=== PATIENT | male | born 1950 | race Caucasian/White ===

== ENCOUNTER 2019-08-11 11:31 | Emergency (ER) | payer MEDICAID, SELFPAY ==
--- NOTE | ~2019-08-11 | XR_ITS ---
EXAMINATION: XR wrist RT min 3V INDICATION: Right wrist pain TECHNIQUE: Four views of the right wrist are obtained. COMPARISON: None available FINDINGS: There is no fracture, dislocation, or subluxation. Mild osteoarthritis is noted at the matilda caphe joint. There is soft tissue swelling of the medial wrist. IMPRESSION: 1. Wrist soft tissue swelling without acute osseous abnormality. Reviewed, dictated and finalized at location A.
[2019-08-11 11:52] VITALS: BP 125/69; PULSE 58; RESP 16; TEMP 37.8; O2SAT 99
--- NOTE | 2019-08-11 11:56 | ED.UPPEXIN ---
HPI - Extremity Injury (Upper) General Chief Complaint: Extremity Injury, Upper Stated Complaint: possible broken right arm Time Seen by Provider: 08/11/19 11:56 Source: patient Mode of arrival: ambulatory Limitations: no limitations History of Present Illness HPI narrative: Carlos Kinney is a 68 yo male comes to express care with pain in right arm after catching arm between door and wall yesterday; states he is on morphine for chronic back and neck pain. Right forearm wrist is mildly swollen and states is painful morphine is not helping. He is currently being treated for high blood pressure chronic back pain, BPH. Patient states he is new to the area will need to find PCP Related Data Home Medications Medication Instructions Recorded Confirmed Flomax 08/11/19 Ventolin HFA 08/11/19 amlodipine 10 mg PO DAILY 08/11/19 08/11/19 aspirin 08/11/19 isosorbide mononitrate 08/11/19 lisinopril 08/11/19 morphine 08/11/19 pregabalin 08/11/19 Allergies Allergy/AdvReac Type Severity Reaction Status Date / Time No Known Allergies Allergy Verified 08/11/19 11:54 Review of Systems Review of Systems: Narrative: CONSTITUTIONAL: Denies fever, chills, sweats. EYES: Denies visual changes, redness, discharge. ENT: Denies rhinorrhea, congestion, sore throat, otalgia. CARDIOVASCULAR: Denies chest pain, palpitations, edema. RESPIRATORY: Denies dyspnea, wheezing, cough GASTROINTESTINAL: Denies abdominal pain, nausea, vomiting, diarrhea. GENITOURINARY: Denies dysuria, hematuria, abnormal discharge SKIN: Denies rash or itching. NEUROLOGIC: Denies numbness, or focal weakness. PSYCHIATRIC: Denies anxiety or depression. Extremity-right arm pain, swelling PMFSH Family History Family History Other Diabetes mellitus Social History Social History (Updated 08/11/19 @ 12:07 by Jesusita Norton CNP) Smoking packs per day: 1.0 Smoking cigarettes per day: 20.0 Smoking status: Current every day smoker Alcohol intake: current Comments At time of signature, I agree with nursing past medical, surgical, social and family history. There is no relevant family history pertinent to the presenting complaint. Exam Narrative: Exam Narrative: GENERAL: This is a well-nourished, well-developed patient, in mild distress. HEAD: normocephalic, atraumatic. EYES: Sclera clear/white. Vision is grossly intact. EARS: External ears normal, . Hearing grossly intact. NOSE: External nose normal without nasal discharge, nares without redness, no rhinorrhea. THROAT: Mucous membranes moist, NECK: Neck supple, CARDIOVASCULAR: Regular rate and rhythm without murmurs, gallops, or rubs. RESPIRATORY: Clear to auscultation. Breath sounds equal bilaterally. No wheezes, rales, or rhonchi. GASTROINTESTINAL: Abdomen soft, non-tender, SKIN: warm, intact with no suspicious lesions or rash, good texture and turgor. NEURO: awake, alert, and oriented to person, place and time. There were no obvious focal neurologic abnormalities. Steady gait EXTREMITIES: Right lower arm around wrist appears somewhat swollen slow to do finger opposition but is able to do; plus radial pulse BACK: without deformity Course Course Emergency Course: X-ray right arm-forearm x-ray is negative for fracture. Is\has osteoarthritis Darwin wrap applied, may use Naprosyn up to 5 days, ice for pain Vital Signs Vital signs: Vital Signs Temperature 100.0 F H 08/11/19 11:52 Pulse Rate 58 L 08/11/19 11:52 Respiratory Rate 16 08/11/19 11:52 Blood Pressure 125/69 08/11/19 11:52 Pulse Oximetry 99 08/11/19 11:52 Temperature 100.0 F H 08/11/19 11:52 Pulse Rate 58 L 08/11/19 11:52 Respiratory Rate 16 08/11/19 11:52 Blood Pressure 125/69 08/11/19 11:52 Pulse Oximetry 99 08/11/19 11:52 MDM - Extremity Injury (Upper) Differential Diagnosis Differential diagnosis: Likely fracture of wrist, fractur
== END 2019-08-11 12:48 | disposition home or self-care (01) ==
PROVIDERS: Emergency Provider Nurse Practitioner
DX: S60.211A Contusion of right wrist, initial encounter (principal); F17.210 Nicotine dependence, cigarettes, uncomplicated; W23.0XXA Caught, crushed, jammed, or pinched between moving objects, initial encounter
CPT/HCPCS: 73110; 99213; A4565; G0463

== ENCOUNTER 2019-11-30 08:08 | Outpatient (CLI) | payer MEDICAID, SELFPAY ==
--- NOTE | ~2019-11-30 | US_ITS ---
EXAMINATION: US venous doppler LE RT DATE: 11/30/2019 09:01 INDICATION: Right lower limb pain TECHNIQUE: Grayscale ultrasound images without and with compression and Doppler ultrasound images of the right lower extremity veins were obtained. COMPARISON: None. FINDINGS: The visualized portions of right common femoral vein, profunda (deep) femoral vein, femoral vein, pop liteal vein, peroneal trunk, posterior tibial veins, peroneal veins, gastrocnemius vein and greater s aphenous vein outflow are patent. IMPRESSION: 1. No deep venous thrombosis in the right lower limb. Reviewed, dictated and finalized at location A.
== END 2019-11-30 08:09 | disposition home or self-care (01) ==
PROVIDERS: Visit Provider Physician Assistant
DX: I82.409 Acute embolism and thrombosis of unspecified deep veins of unspecified lower extremity (principal)
CPT/HCPCS: 93971

== ENCOUNTER 2020-06-16 08:03 | Emergency (ER) | payer OTHER, SELFPAY ==
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
[2020-06-16 08:06] VITALS: BP 139/64; PULSE 57; RESP 20; TEMP 36.3; O2SAT 100
--- NOTE | 2020-06-16 09:06 | PC.NURSE ---
patient walking out of ED at this time, states I will be back in 5 minutes, the x-ray can wait or I can walk down there after I go outside. Patient told to please wait in the room for x-ray to come get him. Patient still walking out of ED without difficulty and in no distress.
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
== END 2020-06-16 10:12 | disposition home or self-care (01) ==
PROVIDERS: Emergency Provider Family Medicine
DX: S16.1XXA Strain of muscle, fascia and tendon at neck level, initial encounter (principal); J44.9 Chronic obstructive pulmonary disease, unspecified; F17.210 Nicotine dependence, cigarettes, uncomplicated; M50.31 Other cervical disc degeneration, high cervical region; M51.36 Other intervertebral disc degeneration, lumbar region; M85.88 Other specified disorders of bone density and structure, other site; V03.19XA Pedestrian with other conveyance injured in collision with car, pick-up truck or van in traffic accident, initial encounter
CPT/HCPCS: 72050; 99283

== ENCOUNTER 2020-06-25 08:31 | Outpatient (CLI) | payer MEDICAID, SELFPAY ==
--- NOTE | ~2020-06-25 | XR_ITS ---
EXAMINATION: XR chest 2V DATE: 06/25/2020 09:01 INDICATION: Chest pain, shortness of breath TECHNIQUE: Frontal and lateral views of the chest are obtained COMPARISON: None available FINDINGS: The lungs are free of acute opacities. There is no pleural effusion or pneumothorax. The ca rdiomediastinal silhouette is normal. There is moderate thoracic spondylosis. IMPRESSION: 1. No acute cardiopulmonary abnormality. Reviewed, dictated and finalized at location B.
== END 2020-06-25 08:32 | disposition home or self-care (01) ==
PROVIDERS: PCP Physician Assistant; Visit Provider Physician Assistant
DX: R07.89 Other chest pain (principal); M47.814 Spondylosis without myelopathy or radiculopathy, thoracic region
CPT/HCPCS: 71046

== ENCOUNTER 2020-07-27 06:59 | Outpatient (CLI) | payer MEDICAID, SELFPAY ==
--- NOTE | ~2020-07-27 | MR_ITS ---
EXAMINATION: MR cervical spine wo con DATE: 07/27/2020 07:57 INDICATION: Neck pain. TECHNIQUE: Magnetic resonance imaging (MRI) of the cervical spine was performed without intravenous c ontrast. Sequences included sagittal T2-weighted FSE, sagittal STIR FSE, sagittal T1-weighted FSE, ax ial MERGE, and axial T2-weighted FSE. COMPARISON: Cervical spine radiographs 06/16/2020 FINDINGS: There is kyphosis of lower cervical spine. There is 5 degrees levocurvature of cervical spi ne. There is mild chronic height loss of C5 and C6 vertebral bodies. There is moderately decreased di sc height at C3-C4, mildly decreased disc height at C4-C5, moderately decreased disc height at C5-C6 and C6-C7, and severely decreased disc height at C7-T1. The spinal cord signal intensity is normal. T he following disc levels are specifically discussed: C2-C3: There is a central protrusion. There is mild bilateral uncovertebral joint osteoarthritis. The re is severe right and mild left facet joint osteoarthritis. There is moderate right and mild left ne ural foraminal stenosis. There is mild central canal stenosis. C3-C4: The disc is bulging. There is severe bilateral uncovertebral joint osteoarthritis. There is se nancy bilateral facet joint osteoarthritis. There is moderate right and severe left neural foraminal s tenosis. There is moderate central canal stenosis with ventral and dorsal indentation of the spinal c ord. C4-C5: The disc is bulging. There is severe right and moderate left uncovertebral joint osteoarthriti s. There is severe right and moderate left facet joint osteoarthritis. There is moderate right and mi ld left neural foraminal stenosis. There is moderate central canal stenosis with ventral and dorsal i ndentation of the spinal cord. C5-C6: The disc is bulging. There is severe right and moderate left uncovertebral joint osteoarthriti s. There is severe right and moderate left facet joint osteoarthritis. There is moderate right and mi ld left neural foraminal stenosis. There is mild central canal stenosis. C6-C7: The disc is bulging. There is moderate bilateral uncovertebral joint osteoarthritis. There is severe bilateral facet joint osteoarthritis. There is mild bilateral neural foraminal stenosis. There is mild central canal stenosis. C7-T1: The disc is bulging. There is severe right and moderate left uncovertebral joint osteoarthriti s. There is severe bilateral facet joint osteoarthritis. There is moderate right and mild left neural foraminal stenosis. There is no central canal stenosis. IMPRESSION: 1. Severe cervical spondylosis. Reviewed, dictated and finalized at location B.
== END 2020-07-27 07:00 | disposition home or self-care (01) ==
PROVIDERS: PCP Physician Assistant; Visit Provider Physician Assistant
DX: M47.892 Other spondylosis, cervical region (principal)
CPT/HCPCS: 72141

== ENCOUNTER 2020-09-24 07:30 | Outpatient (RCR) | payer OTHER, MEDICAID, SELFPAY ==
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
== END 2020-09-27 16:50 | disposition home or self-care (01) ==
LOC: ANHPT 07:30
PROVIDERS: PCP Physician Assistant; Visit Provider Physician Assistant
DX: M54.2 Cervicalgia (principal)
CPT/HCPCS: 97110; 97140; 97162

== ENCOUNTER 2020-11-07 08:02 | Outpatient (CLI) | payer MEDICAID, SELFPAY ==
--- NOTE | ~2020-11-07 | XR_ITS ---
EXAMINATION: XR facial bones min 3V EXAM DATE: 11/07/2020 08:25 INDICATION: Patient noticed left zygomatic arches 12 and compared to right. TECHNIQUE: Frontal, George's, lateral projections of the facial bones. There is no prior study for c omparison. FINDINGS: There are no acute facial fractures or dislocations identified. There is no subcutaneous g as. The soft tissue is unremarkable. There are no radiopaque foreign bodies. Cervical spondylosis . Sinuses appear well aerated. IMPRESSION: 1. Unremarkable facial x-ray exam. Reviewed, dictated and finalized at location A.
== END 2020-11-07 08:03 | disposition home or self-care (01) ==
LOC: ANHIMG 08:06
PROVIDERS: PCP Physician Assistant; Visit Provider Physician Assistant
DX: M89.9 Disorder of bone, unspecified (principal)
CPT/HCPCS: 70150

== ENCOUNTER 2021-02-19 07:35 | Outpatient (CLI) | payer MEDICAID, SELFPAY ==
--- NOTE | ~2021-02-19 | XR_ITS ---
EXAMINATION: XR chest 2V DATE: 02/19/2021 07:52 INDICATION: Acute upper respiratory infection, cough TECHNIQUE: Frontal and lateral views of the chest are obtained COMPARISON: 06/25/2020 FINDINGS: The lungs are free of acute opacities. There is no pleural effusion or pneumothorax. The ca rdiomediastinal silhouette is normal. There is moderate thoracic spondylosis. IMPRESSION: 1. No acute cardiopulmonary abnormality. Reviewed, dictated and finalized at location A. [employer]
== END 2021-02-19 07:36 | disposition home or self-care (01) ==
LOC: ANHIMG 07:40
PROVIDERS: PCP Physician Assistant; Visit Provider Physician Assistant
DX: J06.9 Acute upper respiratory infection, unspecified (principal)
CPT/HCPCS: 71046

== ENCOUNTER 2021-06-20 08:00 | Outpatient (RCR) | payer OTHER, MEDICAID, SELFPAY ==
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
--- NOTE | 2021-06-04 09:35 | PCPTNOTE ---
Patient called to cancel appointment due to rain this date.
--- NOTE | 2021-06-20 08:39 | PTOPEVAL ---
PHYSICAL THERAPY PROGRESS REPORT AND DISCHARGE NOTE. Thank you for referring Carlos Kinney to [facility] [place].? The patient is to be discharged from skilled physical therapy services at this time. Please review, sign, date and return this plan of care CHELSEA. I agree with and certify that the following plan of care is medically necessary. Referring Physician Date Attending Provider: Linda Holloway, PA Evaluation Information Diagnosis Cervicalgia Onset Chronic Subjective Information Pt states doing his exercises Query Text:As Reported By Patient/ is a much, he states when he Family does them his pain eases but never goes away. He report he has recently started getting a sharp pain in the middle of his shoulder blades. He states his pain lingers around a 5/ 10, certain motions will cause it to spike up and then his pain will subside slowly. Pain Assessment Self Report Pain Assessment Left Lower Neck Reported Pain Level 7 Greatest Pain Intensity 9 Cervical and Lumbar ROM Cervical ROM Pain Cervical Flexion (0-60) 32 active Cervical Extension (0-70) 20 active Cervical Lateral Flexion Right (0-50) 35 active Cervical Lateral Flexion Right (0-50) 60 passive Cervical Lateral Flexion Left (0-50) 10 active Cervical Lateral Flexion Left (0-50) 30 passive Cervical Rotation Right (0-90) 32 active Cervical Rotation Right (0-90) 45 passive Cervical Rotation Left (0-90) 44 active Cervical Rotation Left (0-90) 60 passive Cervical ROM 50% of Normal Cervical ROM Comments Pt holds head in 10 deg lateral tilt to the R Upper Extremity Range of Motion General Upper Extremity Range of Motion WFL/Left,WFL/Right Upper Extremity Muscle Strength Testing Gross Upper Extremity Strength Comments B UE grossly 4-/5 Posture Head/C-Spine Posture Rotated Right,Side Bent Right Thoracic Spine Posture Neutral Shoulder Posture (L) Rounded,(R) Rounded Scapula Posture (L) Winged Palpation Assessment Palpation Palpation along lower c-spine and B upper trap Manual Therapy Treatment Comments PROM greater than AROM when Query Text:Include Technique and assessed in supine, still Result of Technique limited from normal and painful at end ROM PT Clinical Summary Talat presents to therapy today for his progress report following 6 therapy visits to
== END 2021-06-21 10:56 | disposition home or self-care (01) ==
LOC: ANHPT 08:00
PROVIDERS: PCP Physician Assistant; Visit Provider Physician Assistant
DX: M54.2 Cervicalgia (principal)
CPT/HCPCS: 97110; 97140; 97161

== ENCOUNTER 2021-08-10 07:52 | Outpatient (CLI) | payer MEDICAID, SELFPAY ==
--- NOTE | ~2021-08-10 | CT_ITS ---
EXAMINATION: CT lung screening DATE: 08/10/2021 08:13 INDICATION: Personal history of tobacco dependence TECHNIQUE: Computed tomography (CT) of the chest was performed without intravenous contrast. The dose -length product was 85.12 mGy-cm. Automated exposure control and iterative reconstruction technique w ere employed. COMPARISON: None FINDINGS: No significant pleural or pericardial effusion. There is atherosclerosis of the aorta and c oronary arteries. Heart size normal. The upper abdomen is unremarkable. There are borderline sized me diastinal lymph nodes, likely reactive. No axillary lymphadenopathy. 6 mm subsolid nodule right apex, coronal image 53. There is a superior endplate compression fracture of L1, age-indeterminate.. There is emphysema. No endobronchial lesions. There are multiple additional 2-3 mm nodules in both lungs p redominantly in the upper lobes. There are are calcified granulomas in both lungs. No pneumothorax. T here is right lower lobe atelectasis/scarring. No endobronchial lesions. IMPRESSION: 1. Lung-RADS category 3: Probably benign. Further evaluation is recommended with noncontrast low-dose chest CT in 6 months. 2: Superior endplate compression fracture of L1, age indeterminate. Reviewed, dictated and finalized at location A. IMPRESSION: 1. Lung-RADS category 3: Probably benign. Further evaluation is recommended wit h noncontrast low-dose chest CT in 6 months. 2: Superior endplate compression fracture of L1, age indeterminate.
== END 2021-08-10 07:53 | disposition home or self-care (01) ==
PROVIDERS: PCP Physician Assistant; Visit Provider Physician Assistant
DX: Z12.2 Encounter for screening for malignant neoplasm of respiratory organs (principal); F17.200 Nicotine dependence, unspecified, uncomplicated; S32.019A Unspecified fracture of first lumbar vertebra, initial encounter for closed fracture
CPT/HCPCS: 71271

== ENCOUNTER 2021-09-12 07:38 | Outpatient (CLI) | payer MEDICAID, SELFPAY ==
--- NOTE | 2021-09-12 13:13 | WPDPFTINT ---
PFT Procedure Performed PFT Procedure Performed Spirometry with Pre/Post Bronchodilator Plethysmography (Lung Vol) Diffusing Cap (DLCO) Flow Vol Loop PFT Interpretation This is a pulmonary function test with pre and post-bronchodilator spirometry, plethysmography and diffusing capacity. The test was performed and results interpreted in accordance with the 2019 and 2005 ATS/ERS Task Force guidelines respectively using the Global Lung Function Initiative-2012 reference equations. Patient demonstrated good effort and cooperation. Reproducibility criteria were met. The quality of the pre bronchodilator spirometry maneuver was Grade A and post bronchodilator spirometry maneuver was Grade A. Findings: Spirometry: The expiratory flow tracing is notched in 3 of 3 pre bronchodilator maneuvers and 2 of 4 post bronchodilator maneuvers. In addition, there is decreased maximal expiratory airflow at low lung volumes with concave expiratory flow tracing. The contour the inspiratory flow tracing is flattened. The pre bronchodilator FVC is 4.32 L, 100% predicted. The pre bronchodilator FEV1 is 2.71 L, 84% predicted. The pre bronchodilator FEV1: FVC ratio 63%. The post bronchodilator FVC is 4.34 L, representing 1% increase. The post bronchodilator FEV1 is 3.04 L, representing a 12% increase. New the post bronchodilator FEV1: FVC ratio 70%. Plethysmography: Total lung capacity is 8.06 L, 112% predicted. The functional residual capacity is 4.28 L, 102 11% predicted. The residual volume is 3.72 L, 147% predicted. Diffusing capacity: The diffusing capacity unadjusted for hemoglobin and carboxyhemoglobin is 25.6, 98% predicted. The diffusing capacity adjusted for alveolar volume is 4.69, 123% predicted. 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 Flattening of the inspiratory flow tracing is seen with variable extrathoracic obstruction. This has been described with vocal cord paralysis, structural or functional vocal fold abnormalities, extrathoracic tracheomalacia, polychondritis, mobile tumors, and laryngomalacia. Clinical correlation is recommended. There is a mild obstructive abnormality with a normal FEV1 and with significant improvement after inhaling a single dose of albuterol. The increase in residual volume is consistent with air trapping from an obstructive abnormality. The diffusing capacity is normal. There are no prior studies for comparison
== END 2021-09-12 07:39 | disposition home or self-care (01) ==
LOC: ANHPFT 07:40
PROVIDERS: PCP Physician Assistant; Visit Provider Physician Assistant
DX: J43.9 Emphysema, unspecified (principal); R94.2 Abnormal results of pulmonary function studies
CPT/HCPCS: 94060; 94726; 94729

== ENCOUNTER 2022-01-29 08:28 | Emergency (ER) | payer MEDICAID, SELFPAY ==
--- NOTE | ~2022-01-29 | CT_ITS ---
EXAMINATION: CT brain wo con DATE: 01/29/2022 09:23 INDICATION: Fall with head injury TECHNIQUE: Computed tomography (CT) of the head was performed without intravenous contrast. Sagittal and coronal reconstructions were performed. The mA was adjusted according to patient size. Iterative reconstruction technique was employed. The dose-length product was 605.33 mGy-cm. COMPARISON: None FINDINGS: No fracture. No acute intracranial hemorrhage, acute infarction or abnormal extra axial fluid collect ion. There is mild scattered white matter hypoattenuation consistent with chronic small vessel ischem ic disease. Symmetric prominence of the sulci consistent with mild age-appropriate diffuse cerebral v olume loss. Ventricles are normal and symmetric. No mass/mass effect. The orbits, paranasal sinuses a nd mastoid air cells are normal. IMPRESSION: 1. No fracture or acute intracranial process. 2. Age-related changes including mild diffuse volume loss and mild scattered white matter hypoattenua tion consistent with chronic small vessel ischemic disease. Reviewed, dictated and finalized at location B. RVISING LIBRARIAN IMPRESSION: 1. No fracture or acute intracranial process. 2. Age-related changes including mild diffuse volume loss and mild scattered wh ite matter hypoattenuation consistent with chronic small vessel ischemic diseas e.
--- NOTE | ~2022-01-29 | CT_ITS ---
EXAMINATION: CT thoracic spine wo con DATE: 01/29/2022 09:52 INDICATION: Midline tenderness upper thoracic spine. Fall. TECHNIQUE: Computed tomography (CT) of the thoracic spine was performed without intravenous contrast. Automated exposure control and iterative reconstruction technique were employed. The dose-length pro duct was 621.93 mGy-cm. COMPARISON: Chest CT 08/10/2021 FINDINGS: There is mild emphysema. A calcified right lung nodule is consistent with old granulomatous disease. There are old healed right rib fractures. There is 6 degrees levocurvature of upper thoraci c spine, 5 degrees dextrocurvature of mid thoracic spine, and 17 degrees levoscoliosis of thoracolumb ar spine. There is a chronic compression fracture of L1 with 2/5 loss of height. There is severe cerv ical spondylosis. There is mildly decreased disc height at T5-T6 and T7-T8. There are endplate osteop hytes at many levels. At T11-T12, there is a central protrusion with mild central canal stenosis. The re is multilevel mild facet joint osteoarthritis in thoracic spine. On the right, there is mild neura l foraminal stenosis at T1-T2 and moderate neural foraminal stenosis at T2-T3. On the left, there is moderate neural foraminal stenosis at T2-T3. IMPRESSION: 1. No acute fracture. 2. Mild thoracic spondylosis. 3. Scoliosis. Reviewed, dictated and finalized at location A. FILLETER
--- NOTE | ~2022-01-29 | CT_ITS ---
EXAMINATION: CT cervical spine wo con DATE: 01/29/2022 09:23 INDICATION: Neck pain. Head injury. TECHNIQUE: Computed tomography (CT) of the cervical spine was performed without intravenous contrast. Automated exposure control and iterative reconstruction technique were employed. The dose-length pro duct was 308.66 mGy-cm. COMPARISON: Cervical spine MRI 07/27/2020 FINDINGS: There is mild emphysema. There is 5 degrees levocurvature of cervical spine. There is kypho sis of cervical spine. Vertebral body heights are normal. There is severely decreased disc height at C3-C4, moderately decreased disc height at C4-C5, and severely decreased disc height from C5-C6 throu gh C7-T1 with endplate remodeling. The following disc levels are specifically discussed: C2-C3: There is moderate right and mild left uncovertebral joint osteoarthritis. There is severe righ t and mild left facet joint osteoarthritis. There is moderate right neural foraminal stenosis. There is no central canal stenosis. C3-C4: There is severe bilateral uncovertebral joint osteoarthritis. There is severe bilateral facet joint osteoarthritis. There is mild right and moderate left neural foraminal stenosis. There is mild central canal stenosis. C4-C5: There is moderate right and mild left uncovertebral joint osteoarthritis. There is severe righ t and mild left facet joint osteoarthritis. There is mild bilateral neural foraminal stenosis. There is no central canal stenosis. C5-C6: There is severe right and moderate left uncovertebral joint osteoarthritis. There is severe ri ght and moderate left facet joint osteoarthritis. There is moderate right and mild left neural forami nal stenosis. There is mild central canal stenosis. C6-C7: There is moderate right and severe left uncovertebral joint osteoarthritis. There is severe bi lateral facet joint osteoarthritis. There is mild left neural foraminal stenosis. There is mild centr al canal stenosis. C7-T1: There is severe bilateral uncovertebral joint osteoarthritis. There is severe bilateral facet joint osteoarthritis. There is mild bilateral neural foraminal stenosis. There is mild central canal stenosis. IMPRESSION: 1. No fracture. 2. Severe cervical spondylosis. Reviewed, dictated and finalized at location A. MATIC FOLDER SEAMER
[2022-01-29 08:32] VITALS: BP 154/90; PULSE 118; RESP 20; TEMP 36.7; O2SAT 100
--- NOTE | 2022-01-29 08:40 | PC.NURSE ---
PT REFUSING TO WEAR A C COLLAR, GET IN TO STRETCHER, AND CHANGE IN TO GOWN.
--- NOTE | 2022-01-29 09:30 | PC.NURSE ---
RN witnessed pt. ambulate out of ed w/ steady gait.
--- NOTE | 2022-01-29 09:32 | PC.NURSE ---
pt. returned to H2
--- NOTE | 2022-01-29 09:36 | ED.GENADULT ---
HPI - General Adult General Chief complaint: Neck Pain/Injury Stated complaint: Hit head, neck pain Time Seen by Provider: 01/29/22 09:02 Source: patient Mode of arrival: ambulatory Limitations: no limitations History of Present Illness HPI narrative: Patient is a 71-year-old male who presents the ED with report of a fall with head injury. Patient reports he was sitting at the poker machine on Thursday night when the chair broke, causing him to fall backwards. He hit his head on the ground. He did not lose consciousness. He has had persistent pain in his posterior neck, radiating down into his upper back, between his shoulder blades. He has not taken anything for the pain. He notes a previous neck injury with surgery. He denies any dizziness, vision changes, nausea, vomiting, lower back pain. Related Data Home Medications Medication Instructions Recorded Confirmed albuterol sulfate 4 mg tablet 4 mg PO ONCE 03/19/21 03/19/21 aspirin 81 mg tablet,delayed 81 mg PO DAILY 03/19/21 03/19/21 release (Adult Aspirin Regimen) buspirone 10 mg tablet 10 mg PO TID 03/19/21 03/19/21 docusate sodium 50 mg capsule 50 mg PO BID 03/19/21 03/19/21 isosorbide dinitrate 10 mg tablet 10 mg PO ONCE 03/19/21 03/19/21 lisinopril 40 mg tablet 40 mg PO DAILY 03/19/21 03/19/21 tamsulosin 0.4 mg capsule 0.4 mg PO DAILY 03/19/21 03/19/21 venlafaxine 37.5 mg 37.5 mg PO DAILY 03/19/21 03/19/21 capsule,extended release 24 hr Allergies Allergy/AdvReac Type Severity Reaction Status Date / Time Iodinated Contrast Media Allergy Anaphylactic Verified 03/19/21 09:55 Shock Review of Systems Review of Systems: CONSTITUTIONAL: Denies fever, chills, or sweats. EYES: Denies visual changes. CARDIOVASCULAR: Denies chest pain. RESPIRATORY: Denies dyspnea. GASTROINTESTINAL: Denies abdominal pain, nausea, vomiting, or diarrhea. MUSCULOSKELETAL: Reports neck pain, upper back pain. NEUROLOGIC: Reports HI. Denies LOC, dizziness, headache, numbness, or weakness. All systems reviewed & are unremarkable except as noted in HPI and below PMFSH Past Medical History Medical History BPH (benign prostatic hyperplasia) Chronic back pain COPD (chronic obstructive pulmonary disease) Depression HTN (hypertension) Surgical History Surgical History History of cervical spinal surgery Family History Family History Other Diabetes mellitus Social History Social History Smoking packs per day: 1.0 Smoking cigarettes per day: 20.0 Smoking status: Current some day smoker Alcohol intake: current Gender identity (if verbalized by the patient): Male Exam Narrative: GENERAL: Well appearing, well-nourished, non-toxic, in no acute distress. HEAD: Normocephalic, atraumatic. NECK: Supple. No adenopathy, no masses. Mild lower midline cervical spinal tenderness. RESPIRATORY: Airway patent, respirations nonlabored. Clear to auscultation bilaterally, no rales, rhonchi, wheezing. CARDIOVASCULAR: Regular rate and rhythm without murmurs, rubs, or gallops. Peripheral pulses 2+ and equal bilaterally. MUSCULOSKELETAL: Moves all extremities. Strength/ROM intact without gross deformities. Mild upper thoracic midline spinal tenderness. No palpable deformities, step-offs. Strength 5/5 in upper and lower extremities bilaterally. SKIN: Warm, dry, normal color. No rashes. NEURO: A&O X3. Speech clear. Cranial nerves II-XII grossly intact. Steady gait. No ataxic movements. No focal deficits. PSYCHIATRIC: Appropriate mood and affect. Normal interaction. Course Vital Signs Vital signs: Vital Signs Temperature 98.0 F 01/29/22 08:32 Pulse Rate 118 H 01/29/22 08:32 Respiratory Rate 20 01/29/22 08:32 Blood Pressure 154/90 H 01/29/22 0
[2022-01-29 10:30] VITALS: BP 156/87; PULSE 78; RESP 18; O2SAT 97
== END 2022-01-29 10:31 | disposition home or self-care (01) ==
PROVIDERS: Emergency Provider Emergency Medicine; PCP Physician Assistant
DX: S09.90XA Unspecified injury of head, initial encounter (principal); S16.1XXA Strain of muscle, fascia and tendon at neck level, initial encounter; F17.210 Nicotine dependence, cigarettes, uncomplicated; J44.9 Chronic obstructive pulmonary disease, unspecified; I10 Essential (primary) hypertension; F32.9 Major depressive disorder, single episode, unspecified; W07.XXXA Fall from chair, initial encounter
CPT/HCPCS: 70450; 72125; 72128; 99284

== ENCOUNTER 2022-05-21 06:58 | Outpatient (CLI) | payer MEDICAID, SELFPAY ==
--- NOTE | ~2022-05-21 | CT_ITS ---
EXAMINATION: CT diagnostic chest wo con DATE: 05/21/2022 07:19 INDICATION: Lung nodule follow-up TECHNIQUE: Computed tomography (CT) of the chest was performed without intravenous contrast. Automate d exposure control and iterative reconstruction technique were employed. Exam dose: 87.79 mGy-cm tot al exam DLP. COMPARISON: 08/10/2021 CT lung screening FINDINGS: There is thoracic and abdominal aortic, great vessel and coronary calcified atherosclerosis . No thoracic aortic aneurysm. No hilar or mediastinal mass lesion or lymphadenopathy is detected. He art size is within normal range. No pericardial or pleural effusion. Minimal bilateral apical and basilar scarring. No pulmonary infiltrate or consolidation or suspicious pulmonary mass lesion. There is old pulmonary granulomatous disease. No suspicious osteolytic or osteoblastic lesions. Prominent degenerative disc disease at C6-7 and C7-T1. Moderate stable compression fracture deformity of L1. IMPRESSION: Lung RADS category 1: Negative Reviewed, dictated and finalized at Location A. Reviewed, dictated and finalized at location B. TENING MACHINE OPERATOR
== END 2022-05-21 06:59 | disposition home or self-care (01) ==
PROVIDERS: PCP Physician Assistant; Visit Provider Physician Assistant
DX: R91.1 Solitary pulmonary nodule (principal)
CPT/HCPCS: 71250

== ENCOUNTER 2023-05-28 05:03 | Emergency (ER) | payer MEDICAID, SELFPAY ==
[2023-05-28] VITALS (14 sets, daily range): BP systolic 132–161; BP diastolic 81–111; PULSE 90–134; RESP 10–19; TEMP 36.5; O2SAT 93–100
--- NOTE | ~2023-05-28 | CT_ITS ---
Non-contrast Head CT History: Status post fall COMPARISON: 01/29/2022 Technique: Axial non-contrast imaging of the brain was performed. Dose reduction technique was used on this scan by utilizing automated exposure control and iterative reconstruction technique. The dose -length product (DLP) was 681.00 mGy-cm. Findings: There is no evidence of intracranial hemorrhage, mass lesion, or acute infarct. Brain par enchyma appears normal. The ventricles and subarachnoid spaces are normal in size. The calvarium ap pears normal. The visualized paranasal sinuses and mastoid air cells are clear. Impression: No significant abnormality seen. Reviewed, dictated and finalized at location . Impression: No significant abnormality seen.
--- NOTE | ~2023-05-28 | XR_ITS ---
Portable chest x-ray Comparison: 02/19/2021 Clinical History: Chest pain Findings: Lungs are clear, without focal consolidation or pleural effusion. Cardiomediastinal silho uette is stable. Bones and soft tissues are unremarkable. Impression: Clear lungs. Reviewed, dictated and finalized at location . Impression: Clear lungs.
--- NOTE | 2023-05-28 05:08 | ECG_ITS ---
Measurements Intervals [place] Rate: 126 P: NE: 0 QRS: 34 QRSD: 97 T: 53 QT: 310 QTc: 449 Interpretive Statements ATRIAL FIBRILLATION WITH RAPID VENTRICULAR RESPONSE DELAYED PRECORDIAL R/S TRANSITION BORDERLINE ST-T WAVE ABNORMALITY- INFERIOR LEADS BASELINE ARTIFACT- V3 ABNORMAL ECG NO PREVIOUS ECG AVAILABLE FOR COMPARISON Electronically Signed On 05-28-2023 6:26:13 CDT by Vignesh Garcia D.O.
[2023-05-28 05:19] LABS: Basophils Percent Auto 0.5 % (0.2-1.2); Eosinophils Absolute Auto 0.1 K/mm3 (0-0.3); Eosinophils Percent Auto 0.8 % (0-4.4); Hematocrit 40.9 % (42.0-52.0); Hemoglobin 13.7 g/dL (14.0-18.0); Immature Granulocyte Absolute 0.02 K/mm3 (0.00-0.031); Immature Granulocyte Percent A 0.3 % (0-0.5); Lymphocytes Absolute Auto 1.01 K/mm3 (0.9-3.2); Lymphocytes Percent Auto 16.9 % (18.3-44.2); Mean Corpuscular HGB Conc 33.5 g/dl (32-36); Mean Corpuscular Hemoglobin 31.9 pg (26-34); Mean Corpuscular Volume 95.1 fl (80-100); Mean Platelet Volume 9.6 fl (7.4-10.4); Monocytes Absolute Auto 0.6 K/mm3 (0.1-0.6); Monocytes Percent Auto 9.2 % (2.6-8.5); Neutrophils Absolute Auto 4.3 K/mm3 (1.3-6.7); Neutrophils Percent Auto 72.3 % (45.5-73.1); Platelet Count Result 210 k/mm3 (150-375); Red Cell Distribution Width 12.1 % (11.5-14.5)
--- NOTE | 2023-05-28 05:28 | PC.NURSE ---
Patient states that while he quit drinking a long time ago he also states For the past couple of months I have really been putting it away .
[2023-05-28 05:30] LABS: Prothrombin Time 13.8 Seconds (11.1-14.7)
[2023-05-28 05:32] LABS: Alanine Aminotransferase 41 U/L (6-50); Albumin Level 4.1 g/dL (3.5-5.1); Alkaline Phosphatase 89 U/L (38-126); Anion Gap 2 mmol/L (8-16); Aspartate Amino Transferase 65 U/L (17-59); Bilirubin,Total 1.4 mg/dL (0.2-1.3); Blood Urea Nitrogen 8 mg/dL (9-20); Calcium 8.9 mg/dL (8.4-10.2); Carbon Dioxide 32 mmol/L (22-30); Chloride 100 mmol/L (98-107); Estimated CRCL calculation 115 ml/min; Estimated Glomerular Filt Rate > 60; Glucose 117 mg/dL (65-110); Lipase 129 U/L (23-300); Potassium 3.9 mmol/L (3.4-5.0); Sodium 134 mmol/L (137-145)
[2023-05-28] MEDS: SODIUM CHLORIDE 0.9% IV 2,000 ML 999 ML IV CONT (05:35)
[2023-05-28] MEDS: ASPIRIN 81 MG CHEWABLE TABLET 324 MG PO (05:37)
[2023-05-28] MEDS: dilTIAZem HCl INJ 25 MG/5 ML VIAL 10 MG IV PUSH ×2 (05:38→05:50)
[2023-05-28 05:44] LABS: Troponin I < 0.012 ng/mL (0.000-0.034)
[2023-05-28 06:18] LABS: Magnesium 1.7 mg/dL (1.6-2.3); Phosphorus 3.4 mg/dL (2.5-4.5)
--- NOTE | 2023-05-28 06:20 | ED.GENADULT ---
HPI - General Adult General Chief complaint: Arrhythmia/Palpitations Stated complaint: dizzy, weak Time Seen by Provider: 05/28/23 05:07 History of Present Illness HPI narrative: this is a 72-year-old male presenting ED chief complaint feeling weak/dizzy. Patient says that over the last 2 months he has began drinking about a pint today. He had a fall 2 days ago where he struck his head. Denies loss of consciousness or use of blood thinners. Not seek medical care at that time. He came in this morning because he started to feel shaky and ill. Patient believes he may be going through withdrawal. Patient has history of atrial fibrillation but has refused to be placed on anticoagulation due to side effects. Related Data Home Medications Medication Instructions Recorded Confirmed albuterol sulfate 4 mg tablet 4 mg PO ONCE 03/19/21 03/19/21 aspirin 81 mg tablet,delayed 81 mg PO DAILY 03/19/21 03/19/21 release (Adult Aspirin Regimen) buspirone 10 mg tablet 10 mg PO TID 03/19/21 03/19/21 docusate sodium 50 mg capsule 50 mg PO BID 03/19/21 03/19/21 isosorbide dinitrate 10 mg tablet 10 mg PO ONCE 03/19/21 03/19/21 lisinopril 40 mg tablet 40 mg PO DAILY 03/19/21 03/19/21 tamsulosin 0.4 mg capsule 0.4 mg PO DAILY 03/19/21 03/19/21 venlafaxine 37.5 mg 37.5 mg PO DAILY 03/19/21 03/19/21 capsule,extended release 24 hr Allergies Allergy/AdvReac Type Severity Reaction Status Date / Time Iodinated Contrast Media Allergy Anaphylactic Verified 03/19/21 09:55 Shock [facility] Past Medical History Medical History BPH (benign prostatic hyperplasia) Chronic back pain COPD (chronic obstructive pulmonary disease) Depression HTN (hypertension) Surgical History Surgical History History of cervical spinal surgery Family History Family History Other Diabetes mellitus Social History Social History Smoking packs per day: 1.0 Smoking cigarettes per day: 20.0 Smoking status: Current some day smoker Alcohol intake: current Gender identity (if verbalized by the patient): Male Exam Narrative: APPEARANCE: Patient has a mild tremor, Head: atraumatic. EYES: EOMI, NOSE: Atraumatic NECK: Trachea midline RESPIRATORY: No increased rate of breathing clear to auscultation CARDIOVASCULAR: irregular and tachycardic ABDOMINAL: Non-distended MUSCULOSKELETAl: No obvious deformities NEURO: Alert. Cranial nerves 2-12 grossly intact. Sensation light touch, motor function cerebellar function intact for 4 extremities. Gait exam was normal. SKIN:: Warm, dry. Normal color PSYCHIATRIC: Normal affect Course Vital Signs Vital signs: Vital Signs Temperature 97.7 F 05/28/23 05:01 Pulse Rate 134 H 05/28/23 05:01 Respiratory Rate 17 05/28/23 05:01 Blood Pressure 161/111 H 05/28/23 05:01 Pulse Oximetry 100 05/28/23 05:01 Oxygen Delivery Room Air 05/28/23 05:01 Temperature 97.7 F 05/28/23 05:01 Pulse Rate 98 05/28/23 06:10 Respiratory Rate 16 05/28/23 06:10 Blood Pressure 146/100 H 05/28/23 06:10 Pulse Oximetry 100 05/28/23 06:10 Oxygen Delivery Room Air 05/28/23 05:16 Medical Decision Making [facility] Narrative Medical decision making narrative: -Course: 72-year-old male coming into the ED due to not feeling well. I found to be in AFib - RVR which rate improved with to 2 pushes of diltiazem. patient is not on anticoagulation has no desire to be put on anticoagulation due to the side effects. Additionally the patient appears to have mild withdrawal symptoms. Given IV fluids and Ativan. I recommended admission to the hospital given his AFib with RVR and withdrawal symptoms and the patient refused. Patient states that he does not do well in the
[2023-05-28] MEDS: LORazepam INJ (*CRX) 2 MG/ML VIAL IV PUSH (06:23)
--- NOTE | 2023-05-28 06:28 | PC.NURSE ---
Per EDP Dr. Rasmussen patient does not want to be admitted. Do not give the Paula mitchell.
--- NOTE | 2023-05-28 06:29 | PC.NURSE ---
Patient states he fell on his head two days ago when he was walking around his house. Patient denies taking a blood thinner or LOC. Patient appears with a 5x2 laceration to the top of his head (frontal).
[2023-05-28 06:36] LABS: Influenza A QL RT-PCR Negative (Negative); Influenza B QL RT-PCR Negative (Negative); RSV RNA, RT-PCR Negative (Negative); SARS-CoV-2 RNA PCR Negative (Negative)
[2023-05-28 06:42] LABS: Thyroid Stimulating Hormone Reflex 0.908 uIU/mL (0.465-4.68)
[2023-05-28] MEDS: chlordiazePOXIDE (*CRX) 25 MG CAPSULE PO (06:47)
[2023-05-28] MEDS: TETANUS,DIPHTHERIA,AC PERTUSSIS ADULT (0.5 ML) BOOSTRIX IM (06:47)
== END 2023-05-28 07:37 | disposition left against medical advice (07) ==
PROVIDERS: Emergency Provider Emergency Medicine; PCP Physician Assistant
DX: I48.91 Unspecified atrial fibrillation (principal); F10.10 Alcohol abuse, uncomplicated; Z20.822 Contact with and (suspected) exposure to COVID-19; Z23 Encounter for immunization; N40.0 Benign prostatic hyperplasia without lower urinary tract symptoms; J44.9 Chronic obstructive pulmonary disease, unspecified; I10 Essential (primary) hypertension; F17.210 Nicotine dependence, cigarettes, uncomplicated; Z79.82 Long term (current) use of aspirin; Y90.9 Presence of alcohol in blood, level not specified; R94.31 Abnormal electrocardiogram [ECG] [EKG]
CPT/HCPCS: 36415; 70450; 71045; 80053; 83690; 83735; 84100; 84443; 84484; 85025; 85610; 85730; 87637; 90471; 90715; 93005; 96361; 96374; 96375; 99284; A9270; J2060; J7030

== ENCOUNTER 2023-07-11 20:37 | Emergency (ER) | payer MEDICAID, SELFPAY ==
[2023-07-11 20:44] VITALS: BP 157/90; PULSE 87; RESP 20; TEMP 36.2; O2SAT 100
--- NOTE | 2023-07-11 20:44 | ECG_ITS ---
SEE SCANNED COPY FOR CONFIRMED REPORT MTDD
--- NOTE | 2023-07-11 22:39 | ED.GENADULT ---
HPI - General Adult General Chief complaint: Recheck/Abnormal Lab/Rx Stated complaint: high blood pressure Time Seen by Provider: 07/11/23 22:40 Source: patient and EMS Mode of arrival: EMS History of Present Illness HPI narrative: PATIENT LIVES ALONE, CAME TO THE ED BY AMBULANCE BECAUSE OF ELEVATED BLOOD PRESSURE. PATIENT IS SUPPOSED TO BE ON AMLODIPINE 5 MG ONCE A DAY AND LISINOPRIL 40 MG ONCE A DAY. PATIENT BEEN NOT TAKING HIS AMLODIPINE FOR QUITE A BIT OF TIME BECAUSE HIS BLOOD PRESSURE USED TO BE OKAY. PATIENT HAD SOME ALCOHOL THE DAY BEFORE YESTERDAY SUBSEQUENTLY NOTICED THAT HIS BLOOD PRESSURE WENT UP TO 100. HE DENIES ANY FEVER, CHILLS, NAUSEA, VOMITING, CHEST PAIN OR BACK PAIN OR HEADACHE. HISTORY OF STROKE WITH LEFT HEMIPLEGIA. HISTORY OF ANXIETY AND STRESS, PATIENT USUALLY TAKE HIS MEDICATION AT 2:00 A.M. BECAUSE HE DOES NOT SLEEP. CURRENTLY PATIENT IS ASYMPTOMATIC. ON ARRIVAL TO THE ED BLOOD PRESSURE IS 157/90. Related Data Home Medications Medication Instructions Recorded Confirmed albuterol sulfate 4 mg tablet 4 mg PO ONCE 03/19/21 03/19/21 aspirin 81 mg tablet,delayed 81 mg PO DAILY 03/19/21 03/19/21 release (Adult Aspirin Regimen) buspirone 10 mg tablet 10 mg PO TID 03/19/21 03/19/21 docusate sodium 50 mg capsule 50 mg PO BID 03/19/21 03/19/21 isosorbide dinitrate 10 mg tablet 10 mg PO ONCE 03/19/21 03/19/21 lisinopril 40 mg tablet 40 mg PO DAILY 03/19/21 03/19/21 tamsulosin 0.4 mg capsule 0.4 mg PO DAILY 03/19/21 03/19/21 venlafaxine 37.5 mg 37.5 mg PO DAILY 03/19/21 03/19/21 capsule,extended release 24 hr Allergies Allergy/AdvReac Type Severity Reaction Status Date / Time Iodinated Contrast Media Allergy Anaphylactic Verified 03/19/21 09:55 Shock Review of Systems Review of Systems: All systems reviewed & are unremarkable except as noted in HPI and below PMFSH Past Medical History Medical History BPH (benign prostatic hyperplasia) Chronic back pain COPD (chronic obstructive pulmonary disease) Depression HTN (hypertension) Surgical History Surgical History History of cervical spinal surgery Family History Family History Other Diabetes mellitus Social History Social History Smoking packs per day: 1.0 Smoking cigarettes per day: 20.0 Smoking status: Current some day smoker Alcohol intake: current Gender identity (if verbalized by the patient): Male Exam Narrative: GENERAL APPEARANCE: WELL-DEVELOPED, WELL-NOURISHED SKIN: NORMAL COLOR HEAD: NORMOCEPHALIC, NONTRAUMATIC EYES: CLEAR CONJUNCTIVA ENT: OROPHARYNX NORMAL, EARS NORMAL, NOSE NORMAL NECK: SUPPLE, NONTENDER CHEST AND RESPIRATORY: AIRWAY PATENT, NO RESPIRATORY DISTRESS, NO ACCESSORY MUSCLE USE HEART: IRREGULAR IRREGULARITY ABDOMEN: SOFT, NONTENDER, NO ORGANOMEGALY, QUIET BOWEL SOUNDS VASCULAR: NORMAL PERIPHERAL PULSES, NORMAL CAPILLARY REFILL. MUSCULOSKELETAL: NORMAL RANGE OF MOTION, NONTENDER BACK NEUROLOGIC: ALERT AND ORIENTED ?3, TRANSCRIPTION MANAGER IS NORMAL TESTED, NO GROSS MOTOR DEFICIT Course Vital Signs Vital signs: Vital Signs Temperature 36.2 C L 07/11/23 20:44 Pulse Rate 87 07/11/23 20:44 Respiratory Rate 20 07/11/23 20:44 Blood Pressure 157/90 H 07/11/23 20:44 Pulse Oximetry 100 07/11/23 20:44 Oxygen Delivery Room Air 07/11/23 20:44 Temperature 36.2 C L 07/11/23 20:44 Pulse Rate 85 07/11/23 23:49 Respiratory Rate 15 07/11/23 23:49 Blood Pressure 164/82 H 07/11/23 23:49 Pul
[2023-07-11] MEDS: LORazepam (*CRX) 1 MG TABLET PO (23:01)
[2023-07-11 23:16] VITALS: BP 175/98; PULSE 82; RESP 18
[2023-07-11 23:31] VITALS: BP 156/85; PULSE 67; RESP 17; O2SAT 99
[2023-07-11 23:46] VITALS: BP 164/82; PULSE 77; RESP 15; O2SAT 100
[2023-07-11 23:49] VITALS: BP 164/82; PULSE 85; RESP 15; O2SAT 95
[2023-07-11] MEDS: amLODIPine BESYLATE 5 MG TABLET PO (23:49)
== END 2023-07-12 00:27 | disposition home or self-care (01) ==
LOC: ANHED 23:51
PROVIDERS: Emergency Provider Emergency Medicine; PCP Physician Assistant
DX: I10 Essential (primary) hypertension (principal); T46.1X6A Underdosing of calcium-channel blockers, initial encounter; Z91.128 Patient's intentional underdosing of medication regimen for other reason; I69.354 Hemiplegia and hemiparesis following cerebral infarction affecting left non-dominant side; J44.9 Chronic obstructive pulmonary disease, unspecified; N40.0 Benign prostatic hyperplasia without lower urinary tract symptoms; F32.A Depression, unspecified; F41.9 Anxiety disorder, unspecified; F17.210 Nicotine dependence, cigarettes, uncomplicated; Z79.82 Long term (current) use of aspirin
CPT/HCPCS: 93005; 99283; A9270

== ENCOUNTER 2023-08-15 19:47 | Emergency (ER) | payer MEDICAID, SELFPAY ==
--- NOTE | ~2023-08-15 | CT_ITS ---
EXAMINATION: CT abdomen pelvis wo con DATE: 08/15/2023 21:18 INDICATION: Bilateral flank pain. Abdominal pain. TECHNIQUE: Computed tomography (CT) of the abdomen and pelvis was performed without intravenous contr ast. Automated exposure control and iterative reconstruction technique were employed. The dose-length product was 445.80 mGy-cm. COMPARISON: Chest CT 05/21/2022 FINDINGS: The visualized portions of the lung bases demonstrate mild atelectasis. A calcified left swapnil ng nodule is consistent with old granulomatous disease. No pleural effusion. Cardiomegaly is noted. T here are coronary artery calcifications. No pericardial effusion. Left hepatic lobe is small. The gal lbladder, spleen, pancreas, and adrenal glands are normal. There are cysts in the kidneys measuring u p to 19 mm on the right. There is calcified atherosclerosis of the aorta and many of the other arteri es. There is no urolithiasis. The prostate is mildly enlarged. There are no dilated loops of bowel. T he appendix is not visualized. There are no pathologically enlarged lymph nodes. There is no free int raperitoneal fluid. There is thoracolumbar levoscoliosis. There is severe lumbar spondylosis. There i s a chronic compression fracture of L1. There is a burst fracture of T12 with 1/5 loss of height. IMPRESSION: 1. T12 burst fracture, likely acute or subacute. Reviewed, dictated and finalized at location E.
[2023-08-15 19:52] VITALS: BP 162/87; PULSE 96; RESP 18; TEMP 36.6; O2SAT 99
[2023-08-15 20:08] LABS: Basophils Percent Auto 0.5 % (0.2-1.2); Eosinophils Absolute Auto 0.1 K/mm3 (0-0.3); Eosinophils Percent Auto 2.3 % (0-4.4); Hematocrit 39.5 % (42.0-52.0); Hemoglobin 13.6 g/dL (14.0-18.0); Immature Granulocyte Absolute 0.01 K/mm3 (0.00-0.031); Immature Granulocyte Percent A 0.2 % (0-0.5); Lymphocytes Absolute Auto 1.46 K/mm3 (0.9-3.2); Lymphocytes Percent Auto 26.3 % (18.3-44.2); Mean Corpuscular HGB Conc 34.4 g/dl (32-36); Mean Corpuscular Hemoglobin 32.6 pg (26-34); Mean Corpuscular Volume 94.7 fl (80-100); Mean Platelet Volume 9.3 fl (7.4-10.4); Monocytes Absolute Auto 0.6 K/mm3 (0.1-0.6); Monocytes Percent Auto 10.4 % (2.6-8.5); Neutrophils Absolute Auto 3.4 K/mm3 (1.3-6.7); Neutrophils Percent Auto 60.3 % (45.5-73.1); Platelet Count Result 183 k/mm3 (150-375); Red Blood Count 4.17 M/mm3 (4.6-6.20); White Blood Count 5.6 K/mm3 (4.5-10.0)
[2023-08-15 20:14] VITALS: BP 137/80; PULSE 68; PULSE 72; RESP 14; O2SAT 98
[2023-08-15 20:18] LABS: Alanine Aminotransferase 23 U/L (6-50); Albumin Level 4.2 g/dL (3.5-5.1); Alkaline Phosphatase 87 U/L (38-126); Anion Gap 6 mmol/L (4-12); Aspartate Amino Transferase 43 U/L (17-59); Bilirubin,Total 0.8 mg/dL (0.2-1.3); Blood Urea Nitrogen 11 mg/dL (9-20); Carbon Dioxide 28 mmol/L (22-30); Chloride 96 mmol/L (98-107); Estimated CRCL calculation 85 ml/min; Estimated Glomerular Filt Rate > 60; Glucose 125 mg/dL (65-110); Potassium 3.9 mmol/L (3.4-5.0); Sodium 130 mmol/L (137-145)
--- NOTE | 2023-08-15 20:26 | ED.ABDPAIN ---
HPI - Abdominal Pain General Chief Complaint: Urogenital-Male Stated Complaint: kidney pain Time Seen by Provider: 08/15/23 20:04 Source: patient Mode of arrival: ambulatory Limitations: no limitations History of Present Illness HPI narrative: Artemio is a 72-year-old male patient presenting to the clinic today with complaints of bilateral kidney pain/back pain with some abdominal discomfort as well. He reports he fell about a week ago and landed on his buttocks and makenzie his back. Few days after that he started having some kidney pain. Denies any difficulty with urination. No fever, chills, or body aches. No history of kidney problems in the past. Denies any saddle anesthesia or numbness or tingling in his legs. He has been able to walk with a cane which is normal for him. Does have history of chronic back pain Related Data Home Medications Medication Instructions Recorded Confirmed albuterol sulfate 4 mg tablet 4 mg PO ONCE 03/19/21 03/19/21 aspirin 81 mg tablet,delayed 81 mg PO DAILY 03/19/21 03/19/21 release (Adult Aspirin Regimen) buspirone 10 mg tablet 10 mg PO TID 03/19/21 03/19/21 docusate sodium 50 mg capsule 50 mg PO BID 03/19/21 03/19/21 isosorbide dinitrate 10 mg tablet 10 mg PO ONCE 03/19/21 03/19/21 lisinopril 40 mg tablet 40 mg PO DAILY 03/19/21 03/19/21 tamsulosin 0.4 mg capsule 0.4 mg PO DAILY 03/19/21 03/19/21 venlafaxine 37.5 mg 37.5 mg PO DAILY 03/19/21 03/19/21 capsule,extended release 24 hr Allergies Allergy/AdvReac Type Severity Reaction Status Date / Time Iodinated Contrast Media Allergy Anaphylactic Verified 03/19/21 09:55 Shock Review of Systems Review of Systems: Pertinent positives per HPI. Patient denies any fever, chills, rash, headache, visual changes, dizziness, cough, runny nose, sore throat, shortness of breath, chest pain, palpitations, nausea, vomiting, diarrhea, constipation, or any urinary issues. PMFSH Past Medical History Medical History BPH (benign prostatic hyperplasia) Chronic back pain COPD (chronic obstructive pulmonary disease) Depression HTN (hypertension) Surgical History Surgical History History of cervical spinal surgery Family History Family History Other Diabetes mellitus Social History Social History Smoking packs per day: 1.0 Smoking cigarettes per day: 20.0 Smoking status: Current some day smoker Alcohol intake: current Gender identity (if verbalized by the patient): Male Comments At the time of my signature, I reviewed and agree with the nursing past medical, surgical, social, and family history. There is no relevant family history pertinent to the patient complaint. Exam Narrative: General: Well-developed, well nourished, in no apparent distress. Head: Normocephalic, atraumatic. Cardio: Regular rate and rhythm, s1 and s2 normal, no murmur appreciated. Resp: Clear to auscultation bilaterally, no rhonchi, rales, wheezing or rubs. Abdomen: Soft, pliable, bowel sounds present in all quadrants, generalized tender to palpation, no organomegly, bilateral CVAT tenderness. Musculoskeletal: No deformity, tender to palpation over the mid and lower back, grossly normal range of motion, muscle strength strong and equal, peripheral pulse strong, no edema, no cyanosis, normal gait and station Course Course Emergency Course: Portions of this record may have been created with voice recognition software. Vital Signs Vital signs: Vital Signs Temperature 36.6 C 08/15/23 19:52 Pulse Rate 96 08/15/23 19:52 Respiratory Rate 18 08/15/23 19:52 Blood Pressure 162/87 H 08/15/23 19:52 Pulse Oximetry 99 08/15/23 19:52 Oxygen Delivery Room Air 08/15/23 19:52 Temperature 36.6 C
[2023-08-15] MEDS: SODIUM CHLORIDE 0.9% IV 1,000 ML 999 ML IV CONT (20:50)
[2023-08-15 21:00] LABS: Appearance Urine Clear (Clear); Bilirubin Urine Negative (Negative); Blood Urine Negative (Negative); Color Urine Yellow (Yellow); Glucose Urine UA Negative (Negative); Ketones Urine Negative (Negative); Leukocyte Esterase Ur Negative LEU/UL (Negative); Nitrate Urine Negative (Negative); Protein Urine Negative (Negative); Specific Grav Ur 1.006 (1.001-1.035); Urobilinogen Urine 0.2 mg/dL (<2.0)
[2023-08-15 21:16] LABS: Add Urine Microscopic? NO
[2023-08-15 22:45] VITALS: BP 140/72; PULSE 73; RESP 15; O2SAT 98
--- NOTE | 2023-08-16 01:16 | PC.NURSE ---
Pt refusing to wait in tx room for dc papers. Asking for cab voucher like he received last time. Explained to pt that I had discharged him last time and that I had explained to him cab vouchers were an exception and not always given. Pt states he can call his own cab.
== END 2023-08-16 01:25 | disposition home or self-care (01) ==
PROVIDERS: Emergency Medicine; Emergency Provider Nurse Practitioner Family; PCP Physician Assistant
DX: S22.081A Stable burst fracture of T11-T12 vertebra, initial encounter for closed fracture (principal); F17.210 Nicotine dependence, cigarettes, uncomplicated; J44.9 Chronic obstructive pulmonary disease, unspecified; F32.A Depression, unspecified; I10 Essential (primary) hypertension; N40.0 Benign prostatic hyperplasia without lower urinary tract symptoms; G89.29 Other chronic pain; W19.XXXA Unspecified fall, initial encounter
CPT/HCPCS: 36415; 74176; 80053; 81003; 85025; 96360; 96361; 99284; J7030

== ENCOUNTER 2023-11-12 07:05 | Outpatient (CLI) | payer MEDICAID, SELFPAY ==
--- NOTE | ~2023-11-12 | XR_ITS ---
Clinical Indication: Asthma PA and lateral views of the chest: Comparison: 05/28/2023 Findings: The lungs are clear, without evidence of focal consolidation or pleural effusion. Cardiome diastinal silhouette is within normal limits. Moderate compression fracture of L1 noted. Impression: Clear lungs. Moderate L1 compression fracture. Reviewed, dictated and finalized at location . Impression: Clear lungs. Moderate L1 compression fracture.
== END 2023-11-12 07:06 | disposition home or self-care (01) ==
PROVIDERS: PCP Physician Assistant; Visit Provider Physician Assistant
DX: J45.909 Unspecified asthma, uncomplicated (principal); M48.56XA Collapsed vertebra, not elsewhere classified, lumbar region, initial encounter for fracture
CPT/HCPCS: 71046

== ENCOUNTER 2023-12-08 06:39 | Emergency (ER) | payer MEDICAID, SELFPAY ==
--- NOTE | ~2023-12-08 | XR_ITS ---
Clinical Indication: Chest pain PA and lateral views of the chest: Comparison: 11/12/2023 Findings: The lungs are clear, without evidence of focal consolidation or pleural effusion. Cardiome diastinal silhouette is within normal limits. Stable L1 compression fracture. Impression: Clear lungs. Reviewed, dictated and finalized at [facility]. Impression: Clear lungs.
[2023-12-08 05:51] VITALS: BP 138/98; PULSE 98; RESP 15; TEMP 36.9; O2SAT 100
--- NOTE | 2023-12-08 06:00 | ECG_ITS ---
Test Date: 2023-12-08 06:10:17 Measurements Intervals [place] Rate: 108 P: 0 MD: 0 QRS: 19 QRSD: 98 T: 0 QT: 353 QTc: 475 Interpretive Statements ATRIAL FIBRILLATION WITH RAPID VENTRICULAR RESPONSE BORDERLINE ST-T WAVE ABNORMALITY- INF/LAT LEADS ABNORMAL ECG No previous ECG available for comparison Electronically Signed On 12-08-2023 06:36:44 CDT by Vignehs Garcia D.O.
[2023-12-08 06:13] LABS: Basophils Percent Auto 0.4 % (0.2-1.2); Eosinophils Percent Auto 0.3 % (0-4.4); Hematocrit 42.4 % (42.0-52.0); Hemoglobin 14.9 g/dL (14.0-18.0); Immature Granulocyte Absolute 0.02 K/mm3 (0.00-0.031); Immature Granulocyte Percent A 0.3 % (0-0.5); Lymphocytes Absolute Auto 0.46 K/mm3 (0.9-3.2); Lymphocytes Percent Auto 6.4 % (18.3-44.2); Mean Corpuscular HGB Conc 35.1 g/dl (32-36); Mean Corpuscular Hemoglobin 33.9 pg (26-34); Mean Corpuscular Volume 96.4 fl (80-100); Mean Platelet Volume 9.4 fl (7.4-10.4); Monocytes Absolute Auto 0.4 K/mm3 (0.1-0.6); Monocytes Percent Auto 5.5 % (2.6-8.5); Neutrophils Absolute Auto 6.3 K/mm3 (1.3-6.7); Neutrophils Percent Auto 87.1 % (45.5-73.1); Platelet Count Result 201 k/mm3 (150-375); Red Cell Distribution Width 11.9 % (11.5-14.5); White Blood Count 7.2 K/mm3 (4.5-10.0)
[2023-12-08 06:28] LABS: Prothrombin Time 13.5 Seconds (11.1-14.7)
[2023-12-08 06:29] LABS: Partial Thromboplastin Time 30.7 Seconds (22.3-36.8)
[2023-12-08 06:32] LABS: Alanine Aminotransferase 31 U/L (6-50); Albumin Level 4.4 g/dL (3.5-5.1); Alkaline Phosphatase 89 U/L (38-126); Anion Gap 10 mmol/L (4-12); Aspartate Amino Transferase 50 U/L (17-59); Bilirubin,Total 0.8 mg/dL (0.2-1.3); Blood Urea Nitrogen 8 mg/dL (9-20); Calcium 8.8 mg/dL (8.4-10.2); Carbon Dioxide 29 mmol/L (22-30); Chloride 89 mmol/L (98-107); Estimated CRCL calculation 113 ml/min; Estimated Glomerular Filt Rate > 60; Glucose 129 mg/dL (65-110); Lipase 78 U/L (23-300); Potassium 4.3 mmol/L (3.4-5.0); Sodium 128 mmol/L (137-145)
[2023-12-08 06:44] LABS: Troponin I < 0.012 ng/mL (0.000-0.034)
[2023-12-08 07:46] VITALS: BP 147/87; PULSE 94; RESP 18; TEMP 36.6; O2SAT 98
--- NOTE | 2023-12-08 07:50 | ED.GENADULT ---
HPI - General Adult General Chief complaint: Recheck/Abnormal Lab/Rx Stated complaint: ETOH withdrawal Time Seen by Provider: 12/08/23 07:19 History of Present Illness HPI narrative: This 73 old male presenting ED with chief complaint alcohol abuse. Patient told triage nursing staff he was concerned about his varying blood pressures. However when I spoke to him he said that his actual concern is that he has started drinking that he like to get clean. Last time he received Librium and he was able to use that to stop drinking. Patient has been drinking 15 beers a day for the last 3 months. Last drink was this morning when he had 3 beers. Patient would like prescription for Librium and will follow up with primary care physician no other complaints at this time. Related Data Home Medications Medication Instructions Recorded Confirmed albuterol sulfate 4 mg tablet 4 mg PO ONCE 03/19/21 03/19/21 aspirin 81 mg tablet,delayed 81 mg PO DAILY 03/19/21 03/19/21 release (Adult Aspirin Regimen) buspirone 10 mg tablet 10 mg PO TID 03/19/21 03/19/21 docusate sodium 50 mg capsule 50 mg PO BID 03/19/21 03/19/21 isosorbide dinitrate 10 mg tablet 10 mg PO ONCE 03/19/21 03/19/21 lisinopril 40 mg tablet 40 mg PO DAILY 03/19/21 03/19/21 tamsulosin 0.4 mg capsule 0.4 mg PO DAILY 03/19/21 03/19/21 venlafaxine 37.5 mg 37.5 mg PO DAILY 03/19/21 03/19/21 capsule,extended release 24 hr Allergies Allergy/AdvReac Type Severity Reaction Status Date / Time Iodinated Contrast Media Allergy Anaphylactic Verified 12/08/23 05:55 Shock [facility] Past Medical History Medical History BPH (benign prostatic hyperplasia) Chronic back pain COPD (chronic obstructive pulmonary disease) Depression HTN (hypertension) Surgical History Surgical History History of cervical spinal surgery Family History Family History Other Diabetes mellitus Social History Social History (Reviewed 08/16/23 @ 01:09 by RODOLFO Fermin Smoking packs per day: 1.0 Smoking cigarettes per day: 20.0 Smoking status: Current some day smoker Alcohol intake: current Gender identity (if verbalized by the patient): Male Exam Narrative: APPEARANCE: No apparent distress. Head: atraumatic. EYES: EOMI, NOSE: Atraumatic NECK: Trachea midline RESPIRATORY: No increased rate of breathing clear auscultation CARDIOVASCULAR: RRR, ABDOMINAL: Non-distended soft nontender MUSCULOSKELETAl: No obvious deformities NEURO: Alert. Moving 4/4 extremities SKIN:: Warm, dry. Normal color PSYCHIATRIC: Normal affect Course Vital Signs Vital signs: Vital Signs Temperature 98.4 F 12/08/23 05:51 Pulse Rate 98 12/08/23 05:51 Respiratory Rate 15 12/08/23 05:51 Blood Pressure 138/98 H 12/08/23 05:51 Pulse Oximetry 100 12/08/23 05:51 Oxygen Delivery Room Air 12/08/23 05:51 Temperature 97.8 F 12/08/23 07:46 Pulse Rate 94 12/08/23 07:46 Respiratory Rate 18 12/08/23 07:46 Blood Pressure 147/87 H 12/08/23 07:46 Pulse Oximetry 98 12/08/23 07:46 Oxygen Delivery Room Air 12/08/23 05:51 Medical Decision Making MDM Narrative Medical decision making narrative: -Course: 73-year-old male presenting to ED initially telling triage she was here about fluctuating blood pressures but then told me he was really here about his alcohol use. Patient had several beers right before arrival and is not in alcohol withdrawal. He would like medication to help him quit drinking again. He has had success in the past with Librium. He is given 10 mg of IV Valium and will be discharged with prescription of Librium. Given return precautions instructed to follow-up with primary care physician. As far as his blood pressure, it has been within normal limits here in the emergency department
[2023-12-08 07:53] VITALS: BP 147/97; PULSE 94; RESP 20; O2SAT 96
[2023-12-08] MEDS: diazePAM INJ (*CRX) 10 MG/2 ML SYRINGE IV PUSH (08:12)
[2023-12-08 08:29] VITALS: BP 118/83; PULSE 95; RESP 20; O2SAT 97
== END 2023-12-08 08:31 | disposition home or self-care (01) ==
PROVIDERS: Emergency Medicine; Emergency Provider Emergency Medicine; PCP Physician Assistant
DX: F10.10 Alcohol abuse, uncomplicated (principal); F17.210 Nicotine dependence, cigarettes, uncomplicated; N40.0 Benign prostatic hyperplasia without lower urinary tract symptoms; G89.29 Other chronic pain; J44.9 Chronic obstructive pulmonary disease, unspecified; I10 Essential (primary) hypertension
CPT/HCPCS: 36415; 71046; 80053; 83690; 84484; 85025; 85610; 85730; 93005; 96374; 99284; J3360

== ENCOUNTER 2024-02-05 08:36 | Outpatient (CLI) | payer MEDICAID, SELFPAY ==
--- NOTE | ~2024-02-05 | CT_ITS ---
CT Scan of the Chest without Contrast: Clinical Indication: Lung cancer screening, nicotine dependence Technique: Contiguous sections were acquired throughout the chest without intravenous contrast. Dose reduction technique was used on this scan by utilizing automated exposure control and iterative recon struction technique. The dose-length product (DLP) was 109.20 mGy-cm. COMPARISON: 323 Findings: There is no evidence of any significant mediastinal, hilar or axillary lymphadenopathy. Coronary elizabeth ry calcifications are present. There is no evidence of pleural or pericardial effusion. Several calcific granulomas are noted. No other pulmonary nodule evident. Images through the upper abdomen reveal no abnormalities. Stable T12 compression fracture. Impression: Lung RADS 2: Benign appearance. 12 month follow-up screening CT advised. Reviewed, dictated and finalized at location . [facility] Impression: Lung RADS 2: Benign appearance. 12 month follow-up screening CT advised.
== END 2024-02-05 08:37 | disposition home or self-care (01) ==
PROVIDERS: PCP Physician Assistant; Visit Provider Physician Assistant
DX: Z12.2 Encounter for screening for malignant neoplasm of respiratory organs (principal); F17.210 Nicotine dependence, cigarettes, uncomplicated
CPT/HCPCS: 71271

== ENCOUNTER 2024-04-21 08:00 | Outpatient (RCR) | payer MEDICAID, SELFPAY ==
--- NOTE | 2024-02-09 08:03 | PCPTNOTE ---
pt called and canceled PT eval due to high BP and going to ER.
--- NOTE | 2024-03-11 09:00 | OPREHPOC ---
Outpatient Therapy Plan of Care This is a Multidisciplinary Plan of Care that may contain components documented by all disciplines (PT, OT, and ST.) PT Problem 1 PT Problem #1 Knowledge Deficit PT Goal 1 Goal / Goal Update *indep with HEP Target Visit 6 PT Problem 2 PT Problem #2 Pain PT Goal 1 Goal / Goal Update *pt report pain rating at worst of 6/10 Target Visit 6 PT Goal 2 Goal / Goal Update * Oswestry self rating of 50% limitation in activity level Target Visit 6 PT Problem 3 PT Problem #3 Impaired Strength PT Goal 1 Goal / Goal Update *increase trunk and hip strength, for stability and support to spine pt able to perform 20 reps of mat and standing exercises with good stability Target Visit 6 PT Problem 4 PT Problem #4 Impaired Range of Motion PT Goal 1 Goal / Goal Update improve flexibility of hips, to improve mobility skills: pt perform without pain increase 1* R hip flexion 2* L hip flexion 3* hamstring length with supine L SLR to 55' Target Visit 6
--- NOTE | 2024-03-11 09:00 | PTOPEVAL1 ---
Assessment and note entered by Melodie Pozo PT Evaluation Information Assessment Status Evaluation ICD-10 Condition Codes (PT) Pain in low back M54.50 Other ICD-10 Condition Codes ( G89.29 chronic pain PT) Onset July 2023 Subjective Information fell in July sustained T12 burst fracture, no brace no surgery; have been more careful and slower doing things since fall, not lifting much at all; Activity: use cane for community/ home without use of it; live in apartment, have assist with cleaning, shopping; do not drive; Goal: feel better, not have as much pain Reported Pain Level Pain Score Self Report Additional Pain Score Comments pain range in the past week: 5- 8/10 increase pain: lean forward forward doing dishes ; sitting 30 min; stand/home tasks 30 min; decrease pain: change position, lie down, stretch back- lean against wall, sit up straight with good posture; heat/ice, 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 He has a history of chronic back pain, chronic neck pain, R knee, R foot pain. Self assessment Oswestry rating of 60% limitation in activity level. He has assist at home for cleaning, shopping and transportation. With the evaluation: all supine R and L hip motions increase his back pain; poor standing position with lateral lean of trunk and rotation of trunk; weakness over trunk and hips; tightness of L hamstring with pain increase. 2 minute walking test distance of 400' with cane. Skilled PT services are indicated for modalities to decrease pain, therapeutic exercises and activities to increase trunk and hip strength and flexibility with education for HEP and pain management. Plan of Care Interventions Electrical Stimulation,Hot Pack/Cold Pack,Manual Therapy,Mechanical Traction,Neuro Re-education, Patient/Caregiver Education,Therapeutic Activities ,Therapeutic Exercise,Ultrasound,Other Other Interventions taping PT Services Indicated Yes Treatment Frequency and 1-2x/wk for 6 visits Duration These treatments will address the objective and functional deficits as defined above. The patient will be advanced safely and appropriately in order for the patient to progress towards his/her prior level of function. Additional exercises will be introduced and as well as a comprehensive home exercise program upon discharge, if needed, ?to ensure carryover of functional gains achieved in the clinic. This treatment plan has been reviewed and agreement upon by the patient.
--- NOTE | 2024-04-04 09:56 | PCPTNOTE ---
pt called and canceled today's reevaluation appt.
--- NOTE | 2024-04-21 08:44 | PTOPDC ---
Assessment and note entered by Melodie Pozo,PT Assessment Status Discharge ICD-10 Condition Codes (PT) Pain in low back M54.50 Other ICD-10 Condition Codes ( G89.29 chronic pain PT) Onset July 2023 Subjective Information use the cane when go out, not in my house; have been doing the exercises at home; try to walk for exercise every day, inside in the hallway Reported Pain Level Pain Score Self Report Additional Pain Score Comments pain rating in the past week -09/22; decrease pain: heat, sit/rest, walk wake up from sleeping due to back pain and have to go to bathroom: on sleep tracker, get about 5 hours/night Assessment PT Clinical Summary Carlos has received 5 PT sessions. He called/ canceled 2 appointments. Compared to initial evaluation: pain rating from to -09/22; self assessment with Oswestry from 60% to 62% limitation in activity level; slight increase in hamstring length on R and L, with L has increase pain in back; supine R and L hip flexion increase back pain; increase in trunk and hip strength with mat exercises; 2 minute walking test distance was 20' less; education for HEP and posture/body mechanics. The goals were partially met. He reported increase pain with almost all exercises, or stated will hurt later , so difficult to increase his strength. He does continue to walk and reports some relief with walking. Some relief in pain with heat and electrical stim. Discharge PT services. He is to continue with his HEP and frequent position changes. Plan of Care PT Services Indicated No
== END 2024-04-21 11:00 | disposition home or self-care (01) ==
LOC: ANHPT 08:00
PROVIDERS: PCP Physician Assistant; Visit Provider Physician Assistant
DX: G89.29 Other chronic pain (principal)
CPT/HCPCS: 97014; 97110; 97161; 97530; G0283